=== PATIENT | male | born 1995 | race Caucasian/White ===

== ENCOUNTER 2021-03-08 19:02 | Emergency (ER) | payer OTHER ==
[~2021-03-08] VITALS: Ht 188 cm; Wt 117.9 kg
[2021-03-08] MEDS ORDERED: ONDANSETRON HCL/PF 4 MG/2 ML VIAL ONE (19:51)
[2021-03-08] MEDS ORDERED: MORPHINE SULFATE INJ 4 MG/ML DISP.SYRIN ONE (19:51)
[2021-03-08] MEDS ORDERED: IV NS 0.9% 1,000 ML BAG IV ONE (20:00)
[2021-03-08] MEDS ORDERED: MORPHINE SULFATE INJ 2 MG/ML DISP.SYRIN IV ONE (20:00)
[2021-03-08] MEDS ORDERED: ONDANSETRON HCL/PF 4 MG/2 ML VIAL IVP ONE (20:00)
--- NOTE | 2021-03-08 20:05 | NUR ---
BIB SELF C/O R SIDE ABD/INGUINAL PAIN THAT RADIATES TO R LOWER BACK 8/10 SHARP PAIN THAT COMES AND GOES. PAIN ONSET THIS MORNING AND HAS PROGRESSIVELY WORSTENED. REPORT PAIN W URINATION AND DARKENING OR URINE COLOR X 2 DAYS. DENIES ANY FEVER. +NASUEA -VOMITTING-DIARRHEA. BREATHING IS EVEN AND UNLABORED AND ALL V/S STABLE. MD WAS AT BEDSIDE FOR EVAL. 20G IV LINE STARTED IN RAC AND URINE SENT TO LAB.
[2021-03-08 20:07] LABS: BASOPHILS % (AUTO) 0.6 % (0.0-2.0); EOSINOPHILS % (AUTO) 1.6 % (0.0-6.0); HEMATOCRIT 43 % (39-51); HEMOGLOBIN 14.8 g/dL (13.5-17.5); LYMPHOCYTES # (AUTO) 1.8 K/uL (0.8-4.8); LYMPHOCYTES % (AUTO) 26.7 % (20.0-44.0); MEAN CORPUSCULAR HGB CONC 34 g/dl (31.0-36.0); MEAN CORPUSCULAR VOLUME 88 fL (80-96); MONOCYTES # (AUTO) 0.4 K/uL (0.1-1.30); MONOCYTES % (AUTO) 6.3 % (2.0-12.0); NEUTROPHILS # (AUTO) 4.4 K/uL (1.8-8.9); NEUTROPHILS % (AUTO) 64.8 % (43.0-81.0); PLATELET COUNT (AUTO) 157 K/uL (150-450); RED BLOOD CELL COUNT(AUTO) 4.92 MIL/uL (4.5-6.0); WHITE BLOOD COUNT (AUTO) 6.7 K/uL (4.3-11.0)
[2021-03-08 20:07] LABS: BILIRUBIN,URINE NEGATIVE (NEGATIVE); LEUKOCYTE ESTERASE ,URINE NEGATIVE (NEGATIVE); NITRITE, URINE POSITIVE (NEGATIVE); PROTEIN,URINE NEGATIVE (NEGATIVE); UGLUCOSE 100 MG/DL mg/dL (NEGATIVE)
--- NOTE | 2021-03-08 20:11 | NUR ---
PT TAKEN TO CT
[2021-03-08 20:14] LABS: CREATININE 1.3 mg/dL (0.6-1.3); POTASSIUM 3.6 mmol/L (3.5-5.1)
[2021-03-08 20:14] LABS: COLOR,URINE ORANGE (YELLOW)
[2021-03-08 20:17] LABS: RBC,URINE 0-2 /HPF (0-2); WBC,URINE 0-2 /HPF (0-3)
--- NOTE | 2021-03-08 20:17 | NUR ---
PT RETURNED FROM CT
[2021-03-08 20:18] LABS: BACTERIA,URINE None seen /HPF (None Seen); SQUAMOUS EPITHELIAL CELL,UR 0-2 /HPF (None Seen)
[2021-03-08 20:19] LABS: ALBUMIN 4.4 g/dL (3.4-5.0); BILIRUBIN,DIRECT 0.1 mg/dL (0.0-0.2); BILIRUBIN,TOTAL 0.3 mg/dL (0.2-1.0); TOTAL PROTEIN, SERUM 7.7 g/dL (6.4-8.2)
--- NOTE | 2021-03-08 21:45 | NUR ---
US AT BEDSIDE
[2021-03-08] MEDS ORDERED: KETOROLAC TROMETHAMINE 15 MG/ML VIAL ONE (21:53)
[2021-03-08] MEDS ORDERED: KETOROLAC TROMETHAMINE INJ 30 MG/ML VIAL IV ONE (22:00)
[2021-03-08] MEDS ORDERED: IBUP-1955 PO (22:52)
[2021-03-08] MEDS ORDERED: HYDROCODONE/APAP 5/325MG TABLET ONE (23:02)
--- NOTE | 2021-03-08 23:07 | NUR ---
IV removed. Catheter intact and site benign. Pressure and 4x4 applied to site. No bleeding noted.Patient discharged to home in stable condition. Rx and Written and verbal after care instructions given. Patient verbalizes understanding of instruction.
[2021-03-08 23:18] VITALS: BP 131/88
[2021-03-08] MEDS ORDERED: HYDROCODONE/APAP 5/325MG TABLET PO ONE (23:30)
== END 2021-03-08 23:18 | disposition home or self-care (01) ==
LOC: ER 19:07
DX: R10.31 Right lower quadrant pain (principal); R10.32 Left lower quadrant pain
CPT/HCPCS: 36415; 74176; 76870; 80048; 80076; 81001; 83690; 85025; 85730; 87086; 96361; 96374; 96375; 99284; J1885; J2270; J2405; J7030